=== PATIENT | male | born 1980 | race African-American/Black ===

== ENCOUNTER 2021-12-05 20:06 | Emergency (ER) | payer OTHER, BC, SELFPAY ==
[2021-12-05 20:08] VITALS: BP 158/88; PULSE 93; RESP 18; TEMP 36; O2SAT 99; BMI 41.1
--- NOTE | 2021-12-05 20:27 | EDS_ITS ---
HPI History of Present Illness Chief Complaint: Upper Extremity Injury Informant: patient Onset/Context/Timing Onset: Today Current Severity: Mild Maximum Severity: Mild Narrative Narrative: Patient presents secondary to right elbow injury. 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 He hit the release bar on a door and jammed his right elbow. He has mild tenderness, worse with flexion. No paresthesias. He is right-hand dominant. [facility] Medical History GERD (gastroesophageal reflux disease) Home Medications Vitamin D3 12/05/21 [History Last Taken Unknown] omeprazole 40 mg PO BID 12/05/21 [History Last Taken Unknown] Allergy/AdvReac Type Severity Reaction Status Date / Time No Known Allergies Allergy Verified 12/05/21 20:07 Social History Smoking Status: Current every day smoker tobacco type: cigarettes ROS ROS ED Constitutional Constitutional ED: Denies chills or fever(s) Eyes Eyes: Denies change in vision ENT ENT ED: Denies rhinorrhea Cardiovascular Cardiovascular: Denies chest pain or palpitations Respiratory/Chest Respiratory/Chest: Denies cough or dyspnea Gastrointestinal Gastrointestinal: Denies abdominal pain Musculoskeletal Musculoskeletal: Reports other Details: Right elbow pain ; Denies back pain or neck pain Neurologic Neurologic: Denies headache(s), paresthesias or weakness Hematologic/Lymphatic Hematologic/Lymphatic: Denies easy bleeding or easy bruising Allergic/Immunologic Allergic/Immunologic ED: Denies urticaria EXAM Physical Exam Const Vital Signs: 12/05/21 20:08 Temperature 96.8 F L Temperature Source Temporal Pulse Rate 93 Respiratory Rate 18 Blood Pressure 158/88 H Blood Pressure Mean 111 Pulse Ox 99 Oxygen Delivery Method Room Air Positive well nourished and well developed General Appearance ED: well developed HEENT Reports moist mucous membranes Eyes PERRL and EOMs intact bilaterally Neck supple Chest Wall inspection of chest normal and palpation of chest normal Resp normal respiratory effort and clear to auscultation bilaterally Cardio regular rate and regular rhythm GI non-tender Palpation: soft Extremity Extremity Narrative: Mild tenderness location on the extensor surface of the right elbow. Full range of motion. Strong distal pulses with normal cap refill. Psych mental status grossly normal Skin Lesions: no lesions Rashes: no rashes MDM MDM MDM Narrative Medical decision making narrative: Patient declined anything for pain. Right elbow x-ray obtained. Treatment and Re-Evaluation Narrative: Right elbow x-ray per my interpretation reveals no acute bony findings. Patient be discharged to continue supportive care at home. Discharge Plan Triage Chief Complaint: Upper Extremity Injury ED Provider: Kristina Plascencia Dx/Rx/DC Orders Clinical Impression: Sprain of right elbow Instructions: ED Sprain, Elbow Prescriptions: No Action omeprazole 40 mg Capsule,Delayed Release(Dr/Ec) 40 mg PO BID RF: 0 Vitamin D3 RF: 0 Stand Alone Forms: Work Status Form Primary Care Provider: Sidney Rivero Referrals: [facility] [GROUP OF PHYSICIANS] - 5-7 Days Sidney Rivero MD [Primary Care Provider] - Disposition Disposition: Home, Self Care
--- NOTE | 2021-12-05 20:31 | RAD_ITS ---
INDICATION: pain EXAMINATION/TECHNIQUE: X-RAY - RIGHT XR Elbow Min 3 Views COMPARISON: None. FINDINGS: SOFT TISSUES: No soft tissue swelling or gas. No radiopaque foreign body. BONES/JOINTS: There is no displacement of the anterior or posterior fat pads. No acute fracture or subluxation. Normal alignment. Preservation of the joint space. No sclerotic or destructive changes observed. There is posterior spurring of the olecranon with irregular, mildly fragmented morphology distal spur may be indicative of chronic enthesopathy. Normal triceps tendon shadow. RAD/Elbow min 3 Views IMPRESSION: Posterior olecranon spurring with irregular, fragmented morphology. Correlate clinically for evidence of triceps tendinopathy. Electronically Signed: Bharathi Shaffer DO at 21:31 EST ,
== END 2021-12-05 21:39 | disposition home or self-care (01) ==
LOC: ED 20:50
PROVIDERS: Emergency Provider Emergency Medicine; PCP Internal Medicine; Visit Provider Emergency Medicine
DX: S53.401A Unspecified sprain of right elbow, initial encounter (principal); W22.09XA Striking against other stationary object, initial encounter; Y93.02 Activity, running; Y99.0 Civilian activity done for income or pay; Y92.119 Unspecified place in children's home and orphanage as the place of occurrence of the external cause; K21.9 Gastro-esophageal reflux disease without esophagitis; Z79.899 Other long term (current) drug therapy; F17.210 Nicotine dependence, cigarettes, uncomplicated
CPT/HCPCS: 73080; 99282